=== PATIENT | male | born 1975 | race Hispanic/Latino ===

== ENCOUNTER 2016-08-09 11:16 | Observation (INO) | payer OTHER ==
[2016-08-09 11:39] VITALS: RESP 18; TEMP 98.3
[2016-08-09] MEDS ORDERED: Sodium Chloride 0.9% 2,000 ML IV STA (12:31)
[2016-08-09 13:02] LABS: BASO % 0.4 % (0.0-2.0); EOS # 0.3 K/uL (0.0-0.7); HEMATOCRIT 48.5 % (35.0-51.0); MEAN CELL VOLUME 83.6 fl (80.0-94.0); MEAN CORPUSCULAR HEMOGLOBIN 28.7 pg (27.0-31.0); MEAN CORPUSCULAR HGB CONC 34.3 g/dL (33.0-37.0); MEAN PLATELET VOLUME 7.2 fl (7.2-11.7); MONO # 0.8 K/uL (0.0-0.8); MONO % 8.6 % (0.0-10.0); NEUT # 5.8 K/uL (1.8-7.0); NRBC % 0.1 % (0.0-0.0); RED CELL DISTRIBUTION WIDTH 13.3 % (11.5-14.5); WHITE BLOOD COUNT 8.9 K/uL (4.8-10.8)
[2016-08-09 13:07] LABS: ALB/GLOB RATIO 1.3 (1.0-2.1); ALKALINE PHOSPHATASE 58 U/L (38-126); ALT/SGPT 51 U/L (21-72); AST/SGOT 36 U/L (17-59); BILIRUBIN,TOTAL 1.3 mg/dl (0.2-1.3); BLOOD UREA NITROGEN 29 mg/dl (9-20); CALCIUM 9.4 mg/dL (8.4-10.2); CARBON DIOXIDE 23 mmol/L (22-30); CHLORIDE 102 mmol/L (98-107); GFR AFRICAN-AMERICAN > 60; GLUCOSE,RANDOM 88 mg/dL (75-110); POTASSIUM 3.9 MMOL/L (3.6-5.0); SODIUM 138 mmol/l (132-148); TOTAL PROTEIN 8.5 G/DL (6.3-8.2)
--- NOTE | 2016-08-09 13:39 | ED PDOC ---
HPI:Nausea, Vomiting, Diarrhea Time Seen by Provider: 08/09/16 12:21 Chief Complaint (Nursing): GI Problem History Per: Patient (states he started having diarrhea 2 days ago, on the morning after he had slovenian food the day before. Since onset he has had multiple bouts of waterry but non blood stool with only 1 or 2 episodes of vomiting. He denies pain but has noted feeling weakness and cold. He has been urinating less and has noted darker urine.) History/Exam Limitations: no limitations Onset/Duration Of Symptoms: Gradual, Persistent Current Symptoms Are (Timing): Still Present Severity: Moderate Past Medical History Reviewed: Historical Data, Nursing Documentation, Vital Signs Vital Signs: Last Vital Signs Temp 98.3 F 08/09/16 11:37 Pulse 76 08/09/16 11:37 Resp 18 08/09/16 11:37 BP 150/97 H 08/09/16 11:37 Pulse Ox 100 08/09/16 11:37 - Medical History PMH: No Chronic Diseases - Surgical History Surgical History: Hernia Repair - Family History Family History: States: No Known Family Hx - Living Arrangements Living Arrangements: With Family - Social History Current smoker - smoking cessation education provided: No - Home Medications Home Medications: Ambulatory Orders Medication Instructions Recorded No Known Home Med 08/09/16 - Allergies Allergies/Adverse Reactions: Allergies Allergy/AdvReac Type Severity Reaction Status Date / Time No Known Allergies Allergy Verified 08/09/16 11:37 Review of Systems ROS Statement: Except As Marked, All Systems Reviewed And Found Negative Constitutional: Positive for: Chills, Weakness, Malaise Gastrointestinal: Positive for: Vomiting, Diarrhea. Negative for: Abdominal Pain, Melena, Hematochezia, Hematemesis, Rectal Pain Genitourinary Male: Negative for: Dysuria, Frequency Physical Exam - Reviewed Nursing Documentation Reviewed: Yes Vital Signs Reviewed: Yes - Physical Exam Appears: Positive for: Non-toxic, Uncomfortable (feels weak and some lightheadedness) Head Exam: Positive for: ATRAUMATIC, NORMAL INSPECTION, NORMOCEPHALIC Skin: Positive for: Normal Color, Warm, DRY Eye Exam: Positive for: EOMI, Normal appearance, PERRL ENT: Positive for: Normal ENT Inspection, Pharynx Is (dry and his lips are dry) Neck: Positive for: Normal, Painless ROM Cardiovascular/Chest: Positive for: Regular Rate, Rhythm Respiratory: Positive for: CNT, Normal Breath Sounds Gastrointestinal/Abdominal: Positive for: Normal Exam, Bowel Sounds, Soft Back: Positive for: Normal Inspection Extremity: Positive for: Normal ROM Neurologic/Psych: Positive for: Alert, Oriented - Laboratory Results Result Diagrams: 08/09/16 12:45 08/09/16 12:45 - ECG O2 Sat by Pulse Oximetry: 100 ED OBSERVATION Discharge: Yes Date of observation admission: 08/09/16 Time of observation admission: 14:00 - Observation admission statement Patient is being placed in observation because:: clinically dehydrated. pale. Will need hydration and reassessment - Progress Note Progress Note: 08/09/16 16:34 feeling much better. lips and mucosa no longer dry in appearance. he is awake and alert. Disposition - Clinical Impression Clinical Impression: Diarrhea - Patient ED Disposition Is Patient to be Admitted: No Doctor Will See Patient In The: Office Counseled Patient/Family Regarding: Diagnosis, Need For Followup, Rx Given - Disposition Disposition: Routine/Home Disposition Time: 16:35 Condition: IMPROVED - POA Present On Arrival: None
[2016-08-09 17:09] VITALS: BP 127/67; PULSE 69; O2SAT 98
== END 2016-08-09 17:09 | disposition home or self-care (01) ==
LOC: H.ER 11:16 → H.EROBSV 14:05
PROVIDERS: ADMIT Emergency Medicine; ATTEND Emergency Medicine
DX: R19.7 Diarrhea, unspecified (principal)

== ENCOUNTER 2017-02-02 16:53 | Emergency (ER) | payer OTHER ==
[2017-02-02 17:02] VITALS: BP 151/81; PULSE 98; RESP 16; TEMP 98; O2SAT 99
--- NOTE | 2017-02-02 17:20 | ED PDOC ---
HPI: Skin/Bite Injury Time Seen by Provider: 02/02/17 17:00 Chief Complaint (Nursing): Bite Chief Complaint (Provider): Bite History Per: Patient History/Exam Limitations: no limitations Onset/Duration Of Symptoms: Mins (prior to arrival) Current Symptoms Are (Timing): Still Present Additional Complaint(s): 41 year old male who presents to the emergency department for an evaluation after he was biten by his dog on the left side of his face prior to arrival. Denied any fever, chills or rash. Patient stated that he is not up-to-date with tetanus vaccination. PMD: Edwin Pereira MD Past Medical History Reviewed: Historical Data, Nursing Documentation, Vital Signs Vital Signs: Last Vital Signs Temp 98.0 F 02/02/17 17:00 Pulse 98 H 02/02/17 17:00 Resp 16 02/02/17 17:00 BP 151/81 H 02/02/17 17:00 Pulse Ox 99 02/02/17 17:00 - Medical History PMH: Denies: No Chronic Diseases Other PMH: Lymes disease - Surgical History Surgical History: Hernia Repair - Family History Family History: States: Unknown Family Hx - Social History Current smoker - smoking cessation education provided: No Ex-Smoker (has not smoked in the last 12 months): No Alcohol: Occasional Drugs: Cannabis - Immunization History Hx Tetanus Toxoid Vaccination: No - Home Medications Home Medications: Ambulatory Orders Medication Instructions Recorded Amoxicillin/Clavulanate [Augmentin 1 tab PO BID #20 tab 02/02/17 875 MG-125 MG] - Allergies Allergies/Adverse Reactions: Allergies Allergy/AdvReac Type Severity Reaction Status Date / Time No Known Allergies Allergy Verified 08/09/16 11:37 Review of Systems ROS Statement: Except As Marked, All Systems Reviewed And Found Negative Constitutional: Negative for: Fever ENT: Positive for: Other (left-side dog bite) Skin: Negative for: Rash Physical Exam - Reviewed Nursing Documentation Reviewed: Yes Vital Signs Reviewed: Yes - Physical Exam Appears: Positive for: Well, Non-toxic, No Acute Distress Skin: Positive for: Normal Color Eye Exam: Positive for: Normal appearance ENT: Positive for: Other (2mm puncture wound to left-sided crease of lips with no active bleeding). Negative for: Normal ENT Inspection Neck: Positive for: Normal Cardiovascular/Chest: Positive for: Regular Rate, Rhythm, Chest Non Tender Respiratory: Positive for: Normal Breath Sounds. Negative for: Decreased Breath Sounds, Respiratory Distress Neurologic/Psych: Positive for: Alert (x3), Oriented, Other (left facial abrasion) - ECG O2 Sat by Pulse Oximetry: 99 (RA) Pulse Ox Interpretation: Normal Medical Decision Making Medical Decision Making: Initial Impression: Animal bite Initial Plan: * Adacel 0.5ml IM Scribe Attestation: Documented by Paula Cohen, acting as a scribe for Vivi Hennessy PA-C. Provider Scribe Attestation: All medical record entries made by the Scribe were at my direction and personally dictated by me. I have reviewed the chart and agree that the record accurately reflects my personal performance of the history, physical exam, medical decision making, and the department course for this patient. I have also personally directed, reviewed, and agree with the discharge instructions and disposition. Disposition - Clinical Impression Clinical Impression: Animal bite wound, Tetanus toxoid vaccination administered at current visit - Disposition Condition: STABLE Prescriptions: Amoxicillin/Clavulanate [Augmentin 875 MG-125 MG] 1 tab PO BID #20 tab Instructions: Animal Bite (ED) Forms: [employer] (Mongolian)
== END 2017-02-02 17:41 | disposition home or self-care (01) ==
LOC: H.ER 16:53
DX: S01.511A Laceration without foreign body of lip, initial encounter (principal); W54.0XXA Bitten by dog, initial encounter; Y92.89 Other specified places as the place of occurrence of the external cause

== ENCOUNTER 2018-04-07 11:12 | Emergency (ER) | payer OTHER, MEDICAID ==
[2018-04-07 11:27] VITALS: BMI 33.7
[2018-04-07 11:29] VITALS: O2SAT 96
[2018-04-07] MEDS ORDERED: Sodium Chloride 0.9% 1,000 ML IV ONE ×3 (12:09→15:18)
[2018-04-07 12:40] LABS: BASO % 0.3 % (0.0-2.0); HEMOGLOBIN 16.3 g/dL (12.0-18.0); LYMPH # 0.2 K/uL (1.0-4.3); LYMPH % 3.2 % (20.0-40.0); MEAN CELL VOLUME 82.6 fl (80.0-94.0); MEAN CORPUSCULAR HEMOGLOBIN 28.1 pg (27.0-31.0); MEAN PLATELET VOLUME 6.8 fl (7.2-11.7); MONO # 0.3 K/uL (0.0-0.8); MONO % 4.7 % (0.0-10.0); NEUT # 6.8 K/uL (1.8-7.0); NEUT % 91.8 % (50.0-75.0); PLATELET COUNT 257 K/uL (130-400); RBC 5.81 Mil/uL (4.40-5.90); RED CELL DISTRIBUTION WIDTH 12.9 % (11.5-14.5); WHITE BLOOD COUNT 7.4 K/uL (4.8-10.8)
[2018-04-07 13:45] LABS: ALB/GLOB RATIO 1.3 (1.0-2.1); ALBUMIN 4.5 g/dL (3.5-5.0); ALT/SGPT 57 U/L (21-72); AST/SGOT 45 U/L (17-59); BLOOD UREA NITROGEN 26 mg/dl (9-20); GFR NON-AFRICAN AMERICAN 52
--- NOTE | 2018-04-07 14:26 | ED PDOC ---
HPI: Abdomen Time Seen by Provider: 04/07/18 11:52 Chief Complaint (Nursing): GI Problem Chief Complaint (Provider): Vomiting History Per: Patient History/Exam Limitations: no limitations Onset/Duration Of Symptoms: Hrs (six to seven), Sudden Onset Outside of [place] travel?: No Current Symptoms Are (Timing): Better Severity: Mild (Pt presents to the ED with a low grade fever complaining of vomiting all night after a sudden onset late last evening. Pt indicates that he consumed a hamburger and an palest[place] coffee (no other alcohol) aroung 8 last night and began vomiting aroung 1am this moring. Pt denies abdominal pain, diarhhea and current nausea. Pt does indicate that he feels weak) Past Medical History Reviewed: Historical Data Vital Signs: Last Vital Signs Temp 99.7 F H 04/07/18 11:27 Pulse 114 H 04/07/18 11:27 Resp 20 04/07/18 11:27 BP 117/78 04/07/18 11:27 Pulse Ox 96 04/07/18 11:27 - Surgical History Surgical History: Hernia Repair - Family History Family History: States: Unknown Family Hx - Immunization History Hx Tetanus Toxoid Vaccination: No - Home Medications Home Medications: Ambulatory Orders Medication Instructions Recorded Amoxicillin/Clavulanate [Augmentin 1 tab PO BID #20 tab 02/02/17 875 MG-125 MG] - Allergies Allergies/Adverse Reactions: Allergies Allergy/AdvReac Type Severity Reaction Status Date / Time No Known Allergies Allergy Verified 08/09/16 11:37 Review of Systems ROS Statement: Except As Marked, All Systems Reviewed And Found Negative Constitutional: Positive for: Fever Gastrointestinal: Positive for: Vomiting Physical Exam - Reviewed Nursing Documentation Reviewed: Yes Vital Signs Reviewed: Yes - Physical Exam Appears: Positive for: Well, Non-toxic, No Acute Distress. Negative for: Uncomfortable Head Exam: Positive for: ATRAUMATIC, NORMAL INSPECTION Skin: Positive for: Normal Color, Warm, Dry. Negative for: Diaphoresis, Pallor, Rash Eye Exam: Positive for: Normal appearance, PERRL. Negative for: Nystagmus, Periorbital swelling, Periorbital tenderness Neck: Positive for: Normal, Painless ROM, Supple. Negative for: Decreased ROM Cardiovascular/Chest: Positive for: Regular Rate, Rhythm Respiratory: Positive for: Normal Breath Sounds Pulses-Carotid (L): 2+ Pulses-Carotid (R): 2+ Pulses-Radial (L): 2+ Pulses-Radial (R): 2+ - Laboratory Results Result Diagrams: 04/07/18 12:17 04/07/18 01:11 Lab Results: Total Bilirubin 1.0 mg/dl (0.2-1.3) 04/07/18 01:11 AST 45 U/L (17-59) 04/07/18 01:11 ALT 57 U/L (21-72) 04/07/18 01:11 Alkaline Phosphatase 72 U/L (38-126) 04/07/18 01:11 Total Protein 7.8 G/DL (6.3-8.2) 04/07/18 01:11 Albumin 4.5 g/dL (3.5-5.0) 04/07/18 01:11 Globulin 3.4 gm/dL (2.2-3.9) 04/07/18 01:11 Albumin/Globulin Ratio 1.3 (1.0-2.1) 04/07/18 01:11 - ECG O2 Sat by Pulse Oximetry: 96 Disposition - Clinical Impression Clinical Impression: Vomiting, Dehydration, Hematuria - Patient ED Disposition Is Patient to be Admitted: No Doctor Will See Patient In The: Office Counseled Patient/Family Regarding: Diagnosis - Disposition Disposition: Routine/Home Disposition Time: 16:47 Condition: STABLE Additional Instructions: You have microscopic hematuria; you should see you PMD in 10-14 days to have urine reanalyzed. If there is still a presence of blood in your urine, your PMD will refer you to a urologist Instructions: Dehydration, Adult (DC), Nausea and Vomiting, Adult (DC) Forms: [employer] (Colombian)
[2018-04-07 14:42] LABS: URINE BACTERIA FEW (<OCC); URINE BILIRUBIN NEGATIVE (NEGATIVE); URINE BLOOD NEGATIVE (NEGATIVE); URINE CLARITY SLIGHTY-CLOUDY (Clear); URINE COLOR YELLOW (YELLOW); URINE GLUCOSE (UA) NEG (NEGATIVE); URINE LEUKOCYTE ESTERASE NEG Leu/uL (Negative); URINE PROTEIN 30 mg/dL (NEGATIVE)
[2018-04-07 14:55] LABS: BANDS 4 % (0-2); LYMPHOCYTE 2 % (20-50); MONOCYTE 4 % (0-10); NEUTROPHIL 90 % (42-75); PLATELET ESTIMATE NORMAL (NORMAL); TOTAL CELLS COUNTED 100
[2018-04-07 17:13] VITALS: BP 116/67; PULSE 108; RESP 16; TEMP 99.5
== END 2018-04-07 17:25 | disposition home or self-care (01) ==
LOC: H.ER 11:12
DX: R11.10 Vomiting, unspecified (principal); E86.0 Dehydration; R31.9 Hematuria, unspecified
CPT/HCPCS: 80053; 81003; 85025; 87804; 96361; 96374; 99285; J2405; J7030